=== PATIENT | female | born 1985 | race Caucasian/White ===

== ENCOUNTER 2021-11-19 07:42 | Emergency (ER) | payer MEDICAID ==
[~2021-11-19] VITALS: Ht 162.6 cm; Wt 63.6 kg
[~2021-11-19 07:42] MED LIST: PREN1TAB52 PO
[2021-11-19 07:48] VITALS: BP 153/88
[2021-11-19] MEDS ORDERED: CLAR250T39 PO (07:54)
== END 2021-11-19 08:58 | disposition home or self-care (01) ==
LOC: EMS 07:44
DX: L20.9 Atopic dermatitis, unspecified (principal)
CPT/HCPCS: 99282; Z7502

== ENCOUNTER 2024-06-28 17:14 | Emergency (ER) | payer MEDICAID ==
[~2024-06-28] VITALS: Ht 165.1 cm; Wt 59.1 kg
[~2024-06-28 17:14] MED LIST changes: +CLAR250T39 PO; -PREN1TAB52 PO
[2024-06-28] MEDS ORDERED: DOXY-354 PO (19:19)
[2024-06-28 19:43] VITALS: BP 132/85; PULSE 86; RESP 16; TEMP 98.3; O2SAT 98
== END 2024-06-28 20:12 | disposition home or self-care (01) ==
LOC: EMS 17:17
DX: N61.1 Abscess of the breast and nipple (principal); Z98.890 Other specified postprocedural states
CPT/HCPCS: 99284; Z7502